=== PATIENT | female | born 1935 | race Caucasian/White ===

== ENCOUNTER 2016-04-30 12:46 | Inpatient (IN) | payer OTHER ==
[~2016-04-30] VITALS: Ht 162.6 cm; Wt 149.0 kg
[~2016-04-30 12:46] MED LIST: ADVAIR 250/501 DISK IH; ALBUTEROL17 G1 IH; ALDACTONE25 MG PO; ALLOPURINOL300 MG PO; ARTHROTEC 751 TABLET PO; BENEMID500 MG PO; CALAN SR,COVER240 MG PO; CAPOTEN50 MG PO; CAPTOPRIL50 MG; CAPTOPRIL50 MG PO; CEFDINIR300 MG PO; CEFTIN500 MG PO; CIPROFLOXACIN500 M1 PO; COLACE100 MG PO; COMBIVENT INH14.7 GM IH; COMBIVENT RESPIM4 GM IH; COMBIVENT200 INHALA IH; COUMADIN PO; COUMADIN1 MG PO; COUMADIN4 MG PO; CYCLOBENZAPRINE10 MG PO; CYMBALTA60 MG PO; Combivent IH; Coumadin dosing per PO; DERMAWERX SDS1 EACH TP; DILAUDID2 MG PO; DOXYCYCLINE HY100 MG PO; DULOXETINE HCL60 MG PO; DUONEB 2.5-0.5 M3 ML AEROSOL; DUONEB 2.5-0.5 M3 ML IH; ECOTRIN325 MG PO; ENDOCET 5-3251 EAC1 PO; ENDOCET 5-3251 EACH PO; ENDOCET 7.5-321 EACH PO; ERGOCALCIF50000 UNIT PO; FEOSOL325 MG PO; FLECTOR 1.3%1 PATC1 TD; FLEXERIL10 MG PO; FLEXERIL5 MG PO; FLONASE ALLERG9.9 ML BOTH NARES; FLONASE16 G1 BOTH NARES; FLONASE16 G1 NS; FLORASTOR250 MG PO; FLUTICASONE PRO16 GM BOTH NARES; FUROSEMIDE20 MG PO; FUROSEMIDE40 MG PO; GABAPENTIN300 MG PO; GABAPENTIN600 MG PO; HYDROCODON-ACE1 EAC7 PO; HYDROCODON-ACE1 EAC8 PO; IMDUR30 MG PO; IPRATR-ALBUTEROL3 ML IH; IRON325 M1 PO; ISOSORBIDE MONO30 MG PO; KEFLEX500 MG PO; KENALOG,ARISTOC80 GM TP; KENLAOG,ARISTOC60 ML TP; KLOR-CON 88 MEQ PO; LANSOPRAZOLE30 MG PO; LASIX20 MG PO; LASIX40 MG PO; LEVAQUIN500 MG PO; LEVOTHROID,SY0.05 MG PO; LEVOTHROID50 MCG PO; LEVOTHYROXINE50 MCG PO; LEVOTHYROXINE75 MCG PO; LEVOXYL50 MCG PO; LOVENOX150 MG/1 M SC; Lasix PO; MACROBID100 MG PO; METHENAMINE HIPP1 G1 PO; METHENAMINE HIPP1 GM PO; MICRO-K8 ME1 PO; NEURONTIN300 MG PO; NEURONTIN600 MG PO; NORCO 5/3251 TABLET PO; Omnicef PO; PERCOCET 5/31 TABLET PO; PRAVACHOL40 M1 PO; PRAVACHOL40 MG PO; PRAVACHOL80 MG PO; PRAVASTATIN SOD40 MG PO; PREDNISONE10 MG PO; PREDNISONE20 MG PO; PREDNISONE5 MG PO; PREVACID30 MG PO; PROBENECID500 MG PO; RANITIDINE HCL300 MG PO; REFRESH TEARS15 ML BOTH EYES; ROZEREM8 MG PO; SENOKOT S,PE1 TABLET PO; SENOKOT,SENN1 TABLET PO; SKELAXIN800 MG PO; SPIRIVA RESPIMAT4 GM IH; SYNTHROID50 MCG PO; TRAMADOL HCL50 MG PO; TRIAMCINOLONE A15 G2 TP; TRIAMCINOLONE A15 GM TP; TYLENOL/CODE1 TABLET PO; VALACYCLOVIR500 MG PO; VALIUM5 MG PO; VERAPAMIL HCL240 MG PO; VERELAN 240 MG240 MG PO; Vicodin,Lortab 5/500 PO; WARFARIN SODIUM1 MG PO; WARFARIN SODIUM3 MG PO; ZANTAC300 MG PO; ZOCOR20 MG PO; ZYLOPRIM150 MG PO; ZYLOPRIM300 MG PO; ZYRTEC10 M3 PO; predniSONE PO
[2016-04-30 15:23] LABS: HEMATOCRIT 37.4 % (36.0-46.0); MCH 30.8 PG (29.0-34.0); MCHC 32.6 G/DL (30.0-36.0); MCV 94.4 FL (83-99); MEAN PLAT.VOLUME 11.5 uM^3 (9.5-12.4); PLATELET COUNT 137 K/uL (156-360); RBC DIS.WIDTH-CV 16.9 % (11.8-14.6); RBC DIS.WIDTH-SD 55.7 % (39-53); RED BLOOD COUNT 3.96 M/uL (3.80-5.20)
[2016-04-30 15:29] LABS: EOSINOPHIL (%) 1.2 % (0-5); EOSINOPHIL COUNT 0.1 K/uL (0-0.3); IMMATURE GRANULOCYTE (%) 0.4 % (0.0-0.7); IMMATURE GRANULOCYTE COUNT 0.4 K/uL; LYMPHOCYTE COUNT 0.5 K/uL (1.0-2.8); MONOCYTE (%) 5.3 % (3-12); MONOCYTE COUNT 0.5 K/uL (0-0.8); NEUTROPHIL (%) 87.9 % (45-76); NEUTROPHIL COUNT 8.3 K/uL (1.8-6.4); WHITE BLOOD COUNT 9.5 K/uL (4.1-10.2)
[2016-04-30 15:34] LABS: CHLORIDE 100 mEq/L (99-109); POTASSIUM 4.3 mEq/L (3.7-5.4)
[2016-04-30 15:35] LABS: SODIUM 140 mEq/L (136-147)
[2016-04-30 15:36] LABS: GLUCOSE 104 mg/dL (70-99)
[2016-04-30 15:38] LABS: ANION GAP 14 MEQ/L (2-14)
[2016-04-30 15:40] LABS: GFR ESTIMATE (CALCULATED) 38 mL/min/
[2016-04-30 15:41] LABS: UREA NITROGEN (BUN) 27 mg/dL (9-23)
[2016-04-30 17:25] LABS: ADD MIUA? YES; BILIRUBIN NEGATIVE; BLOOD NEGATIVE; COLOR YELLOW ((YELLOW)); GLUCOSE (STRIP) NEGATIVE; KETONES NEGATIVE; LEUKOCYTES MODERATE; NITRITE NEGATIVE; PROTEIN (STRIP) NEGATIVE; SPECIFIC GRAVITY 1.015 (1.000-1.030)
[2016-04-30] MEDS ORDERED: IRON325 MG PO (17:56)
[2016-04-30] MEDS ORDERED: COUMADIN2 MG PO ×2 (18:00)
[2016-04-30] MEDS ORDERED: VIBRAMYCIN100 MG PO (18:02)
[2016-04-30 18:37] LABS: INTER. NORMALIZED RATIO 1.8; PROTHROMBIN TIME 18.4 (9.2-11.2); PTT 46.4 (25-32)
[2016-04-30 18:42] LABS: TROP-I INTERPRETATION NEGATIVE; TROPONIN-I < 0.01 ng/mL (0.0-0.30)
[2016-04-30 18:47] LABS: BACTERIA 4+; EPITHELIAL CELLS NONE SEEN; MUCUS NONE SEEN; RED BLOOD CELLS 0-5 /HPF (0-5); UCUL ADDED? YES; WHITE BLOOD CELLS 40-50 /HPF (0-5)
[2016-04-30 18:48] LABS: CASTS NONE SEEN /LPF; CRYSTALS NONE SEEN
[2016-04-30 20:26] VITALS: BP 104/52
[2016-05-01 00:32] VITALS: BP 123/58
[2016-05-01 03:10] VITALS: BP 144/68
[2016-05-01 07:50] LABS: HEMATOCRIT 33.5 % (36.0-46.0); INTER. NORMALIZED RATIO 1.6; MCH 30.4 PG (29.0-34.0); MCHC 31.9 G/DL (30.0-36.0); MCV 95.2 FL (83-99); MEAN PLAT.VOLUME 11.4 uM^3 (9.5-12.4); PLATELET COUNT 112 K/uL (156-360); PROTHROMBIN TIME 16.7 (9.2-11.2); RBC DIS.WIDTH-SD 59.4 % (39-53); RED BLOOD COUNT 3.52 M/uL (3.80-5.20); WHITE BLOOD COUNT 5.5 K/uL (4.1-10.2)
[2016-05-01 08:08] LABS: ANION GAP 7 MEQ/L (2-14); CHLORIDE 103 MEQ/L (99-109); GFR ESTIMATE (CALCULATED) 46 mL/min/; GLUCOSE 88 mg/dL (70-99); POTASSIUM 3.8 MEQ/L (3.7-5.4); SAMPLE HEMOLYSIS CHECK 0; SAMPLE ICTERIC CHECK 0; SAMPLE LIPEMIA CHECK 0; SODIUM 138 MEQ/L (136-147); UREA NITROGEN (BUN) 21 mg/dL (9-23)
[2016-05-01 08:36] VITALS: BP 125/65
[2016-05-01 11:54] VITALS: BP 126/65
[2016-05-01 17:10] VITALS: BP 125/68
[2016-05-01 19:00] LABS: INFLUENZA A VIRAL ANTIGEN NEGATIVE; INFLUENZA B VIRAL ANTIGEN NEGATIVE
[2016-05-01 19:45] VITALS: BP 107/64
[2016-05-02] VITALS (8 sets, daily range): BP systolic 129–194; BP diastolic 62–107
[2016-05-02 08:08] LABS: ANION GAP 14 MEQ/L (2-14); CHLORIDE 104 MEQ/L (99-109); POTASSIUM 4.1 MEQ/L (3.7-5.4); SAMPLE HEMOLYSIS CHECK 0; SAMPLE ICTERIC CHECK 0; SAMPLE LIPEMIA CHECK 0; SODIUM 138 MEQ/L (136-147)
[2016-05-02 08:17] LABS: GFR ESTIMATE (CALCULATED) 51 mL/min/; UREA NITROGEN (BUN) 17 mg/dL (9-23)
[2016-05-02 08:19] LABS: GLUCOSE 147 mg/dL (70-99)
[2016-05-02 10:14] LABS: INTER. NORMALIZED RATIO 1.5; PROTHROMBIN TIME 15.3 (9.2-11.2)
[2016-05-02 10:21] LABS: EOSINOPHIL (%) 0 % (0-5); HEMATOCRIT 39.8 % (36.0-46.0); IMMATURE GRANULOCYTE (%) 0.9 % (0.0-0.7); LYMPHOCYTE COUNT 0.6 K/uL (1.0-2.8); MCH 29.7 PG (29.0-34.0); MCHC 31.9 G/DL (30.0-36.0); MEAN PLAT.VOLUME 11.5 uM^3 (9.5-12.4); MONOCYTE COUNT 0.1 K/uL (0-0.8); NEUTROPHIL (%) 83.4 % (45-76); NEUTROPHIL COUNT 3.7 K/uL (1.8-6.4); PLATELET COUNT 135 K/uL (156-360); RBC DIS.WIDTH-CV 16.7 % (11.8-14.6); RBC DIS.WIDTH-SD 57.3 % (39-53); RED BLOOD COUNT 4.28 M/uL (3.80-5.20); WHITE BLOOD COUNT 4.4 K/uL (4.1-10.2)
[2016-05-03 04:00] VITALS: BP 164/89
[2016-05-03 07:10] VITALS: BP 145/70
[2016-05-03 08:17] LABS: INTER. NORMALIZED RATIO 1.7; PROTHROMBIN TIME 17.9 (9.2-11.2)
[2016-05-03 10:50] VITALS: BP 124/63
[2016-05-03 15:25] VITALS: BP 121/62
[2016-05-03 20:17] VITALS: BP 132/74
[2016-05-04] VITALS (7 sets, daily range): BP systolic 127–167; BP diastolic 60–89
[2016-05-04 09:02] LABS: INTER. NORMALIZED RATIO 2.3; PROTHROMBIN TIME 24.2 (9.2-11.2)
[2016-05-05 03:55] VITALS: BP 153/68
[2016-05-05 06:43] VITALS: BP 167/93
[2016-05-05 07:37] LABS: INTER. NORMALIZED RATIO 2.9; PROTHROMBIN TIME 30.1 (9.2-11.2)
[2016-05-05 07:43] LABS: ANION GAP 12 MEQ/L (2-14); CHLORIDE 103 MEQ/L (99-109); GFR ESTIMATE (CALCULATED) 38 mL/min/; GLUCOSE 136 mg/dL (70-99); POTASSIUM 3.9 MEQ/L (3.7-5.4); SAMPLE HEMOLYSIS CHECK 0; SAMPLE ICTERIC CHECK 0; SAMPLE LIPEMIA CHECK 0; SODIUM 139 MEQ/L (136-147); THEOPHYLLINE 9.1 MCG/ML (10-20)
[2016-05-05 07:44] LABS: UREA NITROGEN (BUN) 40 mg/dL (9-23)
[2016-05-05 08:00] LABS: BASOPHIL COUNT 0.1 K/uL (0-0.1); EOSINOPHIL (%) 0 % (0-5); HEMATOCRIT 39.3 % (36.0-46.0); IMMATURE GRANULOCYTE (%) 1.1 % (0.0-0.7); IMMATURE GRANULOCYTE COUNT 0.1 K/uL; MCH 29.9 PG (29.0-34.0); MCHC 32.1 G/DL (30.0-36.0); MCV 93.1 FL (83-99); MEAN PLAT.VOLUME 11.1 uM^3 (9.5-12.4); MONOCYTE (%) 7.4 % (3-12); MONOCYTE COUNT 0.6 K/uL (0-0.8); NEUTROPHIL (%) 78.5 % (45-76); NEUTROPHIL COUNT 6.4 K/uL (1.8-6.4); PLATELET COUNT 154 K/uL (156-360); RBC DIS.WIDTH-CV 16.8 % (11.8-14.6); RBC DIS.WIDTH-SD 57.2 % (39-53); RED BLOOD COUNT 4.22 M/uL (3.80-5.20)
[2016-05-05 08:03] LABS: WHITE BLOOD COUNT 8.2 K/uL (4.1-10.2)
[2016-05-05 08:18] LABS: HEMATOLOGY COMMENT 1 SMEAR COMPATIBLE; USER ID SDF
[2016-05-05 15:53] VITALS: BP 145/93
[2016-05-05 19:15] VITALS: BP 165/97
[2016-05-05 22:57] VITALS: BP 174/88
[2016-05-06 03:10] VITALS: BP 176/81
[2016-05-06 07:36] LABS: MEAN PLAT.VOLUME 12.6 uM^3 (9.5-12.4); PLATELET COUNT 167 K/uL (156-360)
[2016-05-06 07:45] LABS: INTER. NORMALIZED RATIO 2.8; PROTHROMBIN TIME 29.7 (9.2-11.2)
[2016-05-06 08:08] LABS: ALKALINE PHOSPHATASE 67 IU/L (3-129); ANION GAP 8 MEQ/L (2-14); CHLORIDE 104 MEQ/L (99-109); GFR ESTIMATE (CALCULATED) 38 mL/min/; GLUCOSE 136 mg/dL (70-99); POTASSIUM 3.9 MEQ/L (3.7-5.4); SAMPLE HEMOLYSIS CHECK 0; SAMPLE ICTERIC CHECK 0; SAMPLE LIPEMIA CHECK 0; SODIUM 139 MEQ/L (136-147); TOTAL BILIRUBIN 0.5 MG/DL (0.0-1.0); UREA NITROGEN (BUN) 46 mg/dL (9-23)
[2016-05-06 08:18] LABS: DELETE MACHINE DIFF? YES
[2016-05-06 08:34] VITALS: BP 145/85
[2016-05-06 09:20] LABS: ABS NEUTROPHIL COUNT 5.61; ANISOCYTOSIS OCC; PLAT.SUFFICIENCY ADEQUATE; POLYCHROMASIA OCC; USER ID CL
[2016-05-06 12:00] VITALS: BP 180/90
[2016-05-06 13:43] LABS: HEMATOCRIT 36.3 % (36.0-46.0); MCH 30.6 PG (29.0-34.0); MCHC 33.3 G/DL (30.0-36.0); MCV 91.9 FL (83-99); RBC DIS.WIDTH-CV 16.6 % (11.8-14.6); RBC DIS.WIDTH-SD 55.4 % (39-53); RED BLOOD COUNT 3.95 M/uL (3.80-5.20); WHITE BLOOD COUNT 7.4 K/uL (4.1-10.2)
[2016-05-06 16:00] VITALS: BP 116/66
[2016-05-06 19:40] VITALS: BP 138/90
[2016-05-06 23:01] VITALS: BP 136/87
[2016-05-07 04:15] VITALS: BP 136/87
[2016-05-07 06:51] LABS: HEMATOCRIT 38.4 % (36.0-46.0); MCH 30.5 PG (29.0-34.0); MCHC 32.8 G/DL (30.0-36.0); MEAN PLAT.VOLUME 11.9 uM^3 (9.5-12.4); PLATELET COUNT 163 K/uL (156-360); RBC DIS.WIDTH-CV 16.7 % (11.8-14.6); RBC DIS.WIDTH-SD 56.7 % (39-53); RED BLOOD COUNT 4.13 M/uL (3.80-5.20); WHITE BLOOD COUNT 8.6 K/uL (4.1-10.2)
[2016-05-07 07:01] LABS: EOSINOPHIL (%) 0 % (0-5); IMMATURE GRANULOCYTE (%) 1.4 % (0.0-0.7); IMMATURE GRANULOCYTE COUNT 0.1 K/uL; LYMPHOCYTE COUNT 1.5 K/uL (1.0-2.8); MONOCYTE (%) 5.7 % (3-12); MONOCYTE COUNT 0.5 K/uL (0-0.8); NEUTROPHIL (%) 74.9 % (45-76); NEUTROPHIL COUNT 6.5 K/uL (1.8-6.4)
[2016-05-07 07:16] LABS: PROTHROMBIN TIME 32.1 (9.2-11.2)
[2016-05-07 07:33] LABS: ANION GAP 9 MEQ/L (2-14); CHLORIDE 105 MEQ/L (99-109); SAMPLE HEMOLYSIS CHECK 0; SAMPLE ICTERIC CHECK 0; SAMPLE LIPEMIA CHECK 0; SODIUM 142 MEQ/L (136-147); TOTAL BILIRUBIN 0.5 MG/DL (0.0-1.0)
[2016-05-07 07:44] LABS: ALKALINE PHOSPHATASE 67 IU/L (3-129); GFR ESTIMATE (CALCULATED) 38 mL/min/; UREA NITROGEN (BUN) 46 mg/dL (9-23)
[2016-05-07 07:45] LABS: GLUCOSE 97 mg/dL (70-99)
[2016-05-07 08:12] VITALS: BP 141/93
[2016-05-07 09:46] LABS: HEMATOLOGY COMMENT 1 SMEAR COMPATIBLE; USER ID CL
[2016-05-07 12:26] VITALS: BP 108/65
[2016-05-07 17:14] VITALS: BP 149/80
[2016-05-07 19:51] VITALS: BP 160/97
[2016-05-07 23:28] VITALS: BP 145/82
[2016-05-08 03:55] VITALS: BP 158/82
[2016-05-08 08:56] VITALS: BP 131/55
[2016-05-08 09:13] LABS: INTER. NORMALIZED RATIO 2.8; PROTHROMBIN TIME 29.3 (9.2-11.2)
[2016-05-08] MEDS ORDERED: LOPRESSOR25 MG PO (10:53)
[2016-05-08] MEDS ORDERED: VERAPAMIL HCL360 MG PO (10:53)
[2016-05-08] MEDS ORDERED: MONTELUKAST SOD10 MG PO (10:54)
[2016-05-08] MEDS ORDERED: MYCOSTATIN 100,60 ML PO (10:55)
[2016-05-08] MEDS ORDERED: PREDNISONE10 MG PO (10:55)
[2016-05-08] MEDS ORDERED: MUCINEX600 MG PO (10:55)
[2016-05-08] MEDS ORDERED: CEFTIN500 MG PO (11:03)
[2016-05-08 11:15] LABS: HEMATOCRIT 40.2 % (36.0-46.0); MCH 30.8 PG (29.0-34.0); MCHC 32.8 G/DL (30.0-36.0); MCV 93.7 FL (83-99); MEAN PLAT.VOLUME 12.2 uM^3 (9.5-12.4); PLATELET COUNT 176 K/uL (156-360); RBC DIS.WIDTH-CV 17.2 % (11.8-14.6); RBC DIS.WIDTH-SD 57.7 % (39-53); RED BLOOD COUNT 4.29 M/uL (3.80-5.20)
[2016-05-08 11:27] VITALS: BP 130/56
[2016-05-08 11:27] LABS: ANION GAP 4 MEQ/L (2-14); CHLORIDE 104 MEQ/L (99-109); GFR ESTIMATE (CALCULATED) 42 mL/min/; GLUCOSE 89 mg/dL (70-99); POTASSIUM 3.6 MEQ/L (3.7-5.4); SAMPLE HEMOLYSIS CHECK 0; SAMPLE ICTERIC CHECK 0; SAMPLE LIPEMIA CHECK 0; SODIUM 139 MEQ/L (136-147); UREA NITROGEN (BUN) 40 mg/dL (9-23)
== END 2016-05-08 13:14 | disposition home or self-care (01) | DRG 871 ==
LOC: EME 12:46 → EDOF 17:45 → 2EAST 17:45
PROVIDERS: Emergency Medicine; Hospitalist; Internal Medicine
DX: A41.9 Sepsis, unspecified organism (principal); J18.9 Pneumonia, unspecified organism; N39.0 Urinary tract infection, site not specified; Z68.43 Body mass index [BMI] 50.0-59.9, adult; J44.1 Chronic obstructive pulmonary disease with (acute) exacerbation; J96.11 Chronic respiratory failure with hypoxia; B37.0 Candidal stomatitis; I42.9 Cardiomyopathy, unspecified; N18.3 Chronic kidney disease, stage 3 (moderate); E66.01 Morbid (severe) obesity due to excess calories; D53.9 Nutritional anemia, unspecified; D69.6 Thrombocytopenia, unspecified; E03.9 Hypothyroidism, unspecified; I27.2 Other secondary pulmonary hypertension; R53.1 Weakness; F41.9 Anxiety disorder, unspecified; I12.9 Hypertensive chronic kidney disease with stage 1 through stage 4 chronic kidney disease, or unspecified chronic kidney disease; B96.20 Unspecified Escherichia coli [E. coli] as the cause of diseases classified elsewhere; F32.9 Major depressive disorder, single episode, unspecified; G89.29 Other chronic pain; E11.22 Type 2 diabetes mellitus with diabetic chronic kidney disease; M10.9 Gout, unspecified; G47.30 Sleep apnea, unspecified; I27.81 Cor pulmonale (chronic); Z91.013 Allergy to seafood; Z88.8 Allergy status to other drugs, medicaments and biological substances; Z99.81 Dependence on supplemental oxygen; Z86.718 Personal history of other venous thrombosis and embolism; Z87.440 Personal history of urinary (tract) infections; Z87.891 Personal history of nicotine dependence
CPT/HCPCS: 70450; 71010; 71250; 72131; 73560; 74176; 80048; 80053; 80198; 81003; 83605; 84484; 85025; 85027; 85610; 85730; 87040; 87070; 87077; 87086; 87106; 87186; 87205; 87502; 93005; 93306; 94640; 94640 76; 94668; 94760; 94799; 99202; 99281; 99284; J0456; J0692; J0696; J2920; J2930; J7050; J7512; J7644

== ENCOUNTER 2016-05-27 14:39 | Inpatient (IN) | payer OTHER ==
[~2016-05-27] VITALS: Ht 160 cm; Wt 148.6 kg
[~2016-05-27 14:39] MED LIST changes: +COUMADIN2 MG PO; +IRON325 MG PO; +LOPRESSOR25 MG PO; +MONTELUKAST SOD10 MG PO; +MUCINEX600 MG PO; +MYCOSTATIN 100,60 ML PO; +VERAPAMIL HCL360 MG PO; +VIBRAMYCIN100 MG PO
[2016-05-27 16:39] LABS: CHLORIDE 101 mEq/L (99-109); POTASSIUM 4.1 mEq/L (3.7-5.4); SODIUM 143 mEq/L (136-147)
[2016-05-27 16:41] LABS: GLUCOSE 94 mg/dL (70-99)
[2016-05-27 16:42] LABS: ANION GAP 16 MEQ/L (2-14)
[2016-05-27 16:44] LABS: GFR ESTIMATE (CALCULATED) 33 mL/min/
[2016-05-27 16:45] LABS: UREA NITROGEN (BUN) 30 mg/dL (9-23)
[2016-05-27 16:53] LABS: HEMATOCRIT 42.7 % (36.0-46.0); MCH 31.5 PG (29.0-34.0); MCHC 32.8 G/DL (30.0-36.0); RBC DIS.WIDTH-CV 16.4 % (11.8-14.6); RED BLOOD COUNT 4.45 M/uL (3.80-5.20)
[2016-05-27 16:55] LABS: WHITE BLOOD COUNT 5.3 K/uL (4.1-10.2)
[2016-05-27 17:30] LABS: PTT 51.3 (25-32)
[2016-05-27 17:41] LABS: PROTHROMBIN TIME 49.4 (9.2-11.2)
[2016-05-27 17:41] LABS: ADD MIUA? YES; BILIRUBIN NEGATIVE; BLOOD NEGATIVE; COLOR YELLOW ((YELLOW)); GLUCOSE (STRIP) NEGATIVE; KETONES NEGATIVE; LEUKOCYTES TRACE; NITRITE NEGATIVE; PROTEIN (STRIP) NEGATIVE; SPECIFIC GRAVITY 1.019 (1.000-1.030); UROBILINOGEN 0.2 MG/DL (0.2-1.0)
[2016-05-27 17:42] LABS: INTER. NORMALIZED RATIO 4.6
[2016-05-27 17:42] LABS: BACTERIA NONE SEEN /HPF; EPITHELIAL CELLS RARE /HPF; MUCUS TRACE /LPF; RED BLOOD CELLS 0-5 /HPF (0-5); UCUL ADDED? NO; UNCLASSIFIED CRYSTALS 1+ /HPF; WHITE BLOOD CELLS 20-30 /HPF (0-5)
[2016-05-27 17:43] LABS: CASTS NONE SEEN /LPF; CRYSTALS NONE SEEN
[2016-05-27 18:55] LABS: MEAN PLAT.VOLUME 11.7 uM^3 (9.5-12.4)
[2016-05-27 19:07] LABS: PLATELET COUNT 113 K/uL (156-360)
[2016-05-27] MEDS ORDERED: ADVAIR 250/501 DISK IH (19:22)
[2016-05-27] MEDS ORDERED: DOXYCYCLINE HY100 MG PO (19:25)
[2016-05-27] MEDS ORDERED: HYDROXYZINE HCL25 MG PO (19:28)
[2016-05-27] MEDS ORDERED: METAXALONE800 MG PO (20:54)
[2016-05-27] MEDS ORDERED: PROBENECID500 MG PO (20:58)
[2016-05-27] MEDS ORDERED: WARFARIN SODIUM1 MG PO (21:04)
[2016-05-27] MEDS ORDERED: COUMADIN3 MG PO (21:05)
[2016-05-27 23:15] LABS: INFLUENZA A VIRAL ANTIGEN NEGATIVE; INFLUENZA B VIRAL ANTIGEN NEGATIVE
[2016-05-28] VITALS: BP 134/63
[2016-05-28 04:47] VITALS: BP 119/62
[2016-05-28 05:51] LABS: MCH 30.3 PG (29.0-34.0); MCHC 31.8 G/DL (30.0-36.0); MCV 95.4 FL (83-99); MEAN PLAT.VOLUME 11.2 uM^3 (9.5-12.4); PLATELET COUNT 117 K/uL (156-360); RBC DIS.WIDTH-CV 16.7 % (11.8-14.6); RBC DIS.WIDTH-SD 58.3 % (39-53); RED BLOOD COUNT 4.09 M/uL (3.80-5.20)
[2016-05-28 06:00] LABS: EOSINOPHIL (%) 1.7 % (0-5); EOSINOPHIL COUNT 0.1 K/uL (0-0.3); IMMATURE GRANULOCYTE (%) 0.5 % (0.0-0.7); LYMPHOCYTE COUNT 0.8 K/uL (1.0-2.8); MONOCYTE (%) 2.5 % (3-12); MONOCYTE COUNT 0.1 K/uL (0-0.8); NEUTROPHIL (%) 76.1 % (45-76); NEUTROPHIL COUNT 3.1 K/uL (1.8-6.4)
[2016-05-28 06:10] LABS: INTER. NORMALIZED RATIO 4.3; PROTHROMBIN TIME 45.5 (9.2-11.2)
[2016-05-28 06:20] LABS: ALKALINE PHOSPHATASE 73 IU/L (3-129); ANION GAP 8 MEQ/L (2-14); CHLORIDE 102 MEQ/L (99-109); GFR ESTIMATE (CALCULATED) 38 mL/min/; POTASSIUM 4.2 MEQ/L (3.7-5.4); SAMPLE HEMOLYSIS CHECK 0; SAMPLE ICTERIC CHECK 0; SAMPLE LIPEMIA CHECK 0; SODIUM 140 MEQ/L (136-147); TOTAL BILIRUBIN 0.7 MG/DL (0.0-1.0); UREA NITROGEN (BUN) 26 mg/dL (9-23)
[2016-05-28 06:21] LABS: GLUCOSE 120 mg/dL (70-99)
[2016-05-28 07:34] VITALS: BP 140/63
[2016-05-28 07:44] LABS: INTERNAL CONTROL VALID? YES
[2016-05-28 11:39] VITALS: BP 121/58
[2016-05-28 16:27] VITALS: BP 136/77
[2016-05-28 19:26] VITALS: BP 153/83
[2016-05-29 01:21] VITALS: BP 137/73
[2016-05-29 06:19] LABS: PROTHROMBIN TIME 31.7 (9.2-11.2)
[2016-05-29 08:00] VITALS: BP 124/66
[2016-05-29 08:48] LABS: ALKALINE PHOSPHATASE 70 IU/L (3-129); ANION GAP 11 MEQ/L (2-14); CHLORIDE 105 MEQ/L (99-109); GFR ESTIMATE (CALCULATED) 35 mL/min/; GLUCOSE 162 mg/dL (70-99); POTASSIUM 4.1 MEQ/L (3.7-5.4); SAMPLE HEMOLYSIS CHECK 0; SAMPLE ICTERIC CHECK 0; SAMPLE LIPEMIA CHECK 0; SODIUM 142 MEQ/L (136-147); TOTAL BILIRUBIN 0.4 MG/DL (0.0-1.0); UREA NITROGEN (BUN) 33 mg/dL (9-23)
[2016-05-29 09:04] LABS: MCH 30.4 PG (29.0-34.0); MCHC 32.2 G/DL (30.0-36.0); MCV 94.4 FL (83-99); MEAN PLAT.VOLUME 11.7 uM^3 (9.5-12.4); PLATELET COUNT 123 K/uL (156-360); RBC DIS.WIDTH-CV 16.8 % (11.8-14.6); RBC DIS.WIDTH-SD 57.7 % (39-53); RED BLOOD COUNT 3.92 M/uL (3.80-5.20); WHITE BLOOD COUNT 5.7 K/uL (4.1-10.2)
[2016-05-29 10:25] LABS: VANCOMYCIN, TROUGH 25.8 MCG/ML (10-20)
[2016-05-29 16:11] VITALS: BP 123/58
[2016-05-29 19:59] VITALS: BP 129/66
[2016-05-29 23:16] VITALS: BP 178/82
[2016-05-30 07:30] VITALS: BP 144/63
[2016-05-30 09:19] LABS: INTER. NORMALIZED RATIO 2.5; PROTHROMBIN TIME 25.8 (9.2-11.2)
[2016-05-30 15:21] VITALS: BP 144/69
[2016-05-31] VITALS: BP 133/60
[2016-05-31 06:57] LABS: INTER. NORMALIZED RATIO 3.1; PROTHROMBIN TIME 32.8 (9.2-11.2)
[2016-05-31 08:01] VITALS: BP 153/69
[2016-05-31] MEDS ORDERED: AMOX TR-K CLV1 EAC3 PO (08:52)
[2016-05-31] MEDS ORDERED: PREDNISONE10 MG PO (08:53)
== END 2016-05-31 12:16 | disposition home health service (06) | DRG 190 ==
LOC: EME 14:39 → EDOF 19:33 → 3EAST 19:33
PROVIDERS: Emergency Medicine; Internal Medicine; Nurse Practitioner Adult Health
DX: J44.0 Chronic obstructive pulmonary disease with (acute) lower respiratory infection (principal); J18.9 Pneumonia, unspecified organism; J44.1 Chronic obstructive pulmonary disease with (acute) exacerbation; I48.0 Paroxysmal atrial fibrillation; J96.11 Chronic respiratory failure with hypoxia; Y95 Nosocomial condition; Z99.81 Dependence on supplemental oxygen; R29.1 Meningismus; I12.9 Hypertensive chronic kidney disease with stage 1 through stage 4 chronic kidney disease, or unspecified chronic kidney disease; N18.3 Chronic kidney disease, stage 3 (moderate); E66.01 Morbid (severe) obesity due to excess calories; Z68.43 Body mass index [BMI] 50.0-59.9, adult; I50.31 Acute diastolic (congestive) heart failure; E78.00 Pure hypercholesterolemia, unspecified; G89.29 Other chronic pain; M10.9 Gout, unspecified; E03.9 Hypothyroidism, unspecified; I27.2 Other secondary pulmonary hypertension; E78.5 Hyperlipidemia, unspecified; J45.909 Unspecified asthma, uncomplicated; K21.9 Gastro-esophageal reflux disease without esophagitis; R51 Headache; G47.33 Obstructive sleep apnea (adult) (pediatric); Z66 Do not resuscitate; Z86.711 Personal history of pulmonary embolism; Z86.718 Personal history of other venous thrombosis and embolism; Z79.01 Long term (current) use of anticoagulants; Z91.19 Patient's noncompliance with other medical treatment and regimen; Z96.653 Presence of artificial knee joint, bilateral; Z96.641 Presence of right artificial hip joint
CPT/HCPCS: 70450; 71010; 71020; 80048; 80053; 80202; 81003; 85025; 85027; 85610; 85730; 87070; 87205; 87449; 87502; 93005; 94640; 94640 76; 94799; 97530 GO; 97530 GP; 99202; 99281; 99284; J0456; J2543; J2930; J3370; J7030; J7050; J7512

== ENCOUNTER 2016-07-17 10:25 | Emergency (ER) | payer OTHER ==
[~2016-07-17] VITALS: Ht 162.6 cm; Wt 56.7 kg
[~2016-07-17 10:25] MED LIST changes: +AMOX TR-K CLV1 EAC3 PO; +COUMADIN3 MG PO; +HYDROXYZINE HCL25 MG PO; +METAXALONE800 MG PO
[2016-07-17 11:09] LABS: EOSINOPHIL (%) 4.3 % (0-5); EOSINOPHIL COUNT 0.2 K/uL (0-0.3); HEMATOCRIT 36.8 % (36.0-46.0); IMMATURE GRANULOCYTE (%) 0.2 % (0.0-0.7); INSTRUMENT ABS NEUTROPHIL CT 2.6 K/uL; LYMPHOCYTE COUNT 1.3 K/uL (1.0-2.8); MCH 31.2 PG (29.0-34.0); MCHC 31.5 G/DL (30.0-36.0); MCV 98.9 FL (83-99); MEAN PLAT.VOLUME 11.5 uM^3 (9.5-12.4); MONOCYTE (%) 7.3 % (3-12); MONOCYTE COUNT 0.3 K/uL (0-0.8); NEUTROPHIL (%) 59.1 % (45-76); NEUTROPHIL COUNT 2.6 K/uL (1.8-6.4); PLATELET COUNT 127 K/uL (156-360); RBC DIS.WIDTH-CV 15.6 % (11.8-14.6); RBC DIS.WIDTH-SD 56.8 % (39-53); RED BLOOD COUNT 3.72 M/uL (3.80-5.20); WHITE BLOOD COUNT 4.4 K/uL (4.1-10.2)
[2016-07-17 11:17] LABS: INTER. NORMALIZED RATIO 2.8; PROTHROMBIN TIME 29.4 (9.2-11.2)
[2016-07-17 11:19] LABS: CHLORIDE 103 mEq/L (99-109); POTASSIUM 3.7 mEq/L (3.7-5.4); SODIUM 142 mEq/L (136-147)
[2016-07-17 11:22] LABS: ANION GAP 8 MEQ/L (2-14)
[2016-07-17 11:23] LABS: GLUCOSE 101 mg/dL (70-99)
[2016-07-17 11:25] LABS: GFR ESTIMATE (CALCULATED) 46 mL/min/; UREA NITROGEN (BUN) 23 mg/dL (9-23)
[2016-07-17] MEDS ORDERED: TYLENOL WITH C1 EACH PO (13:04)
[2016-07-17 14:20] VITALS: BP 149/83
== END 2016-07-17 14:21 | disposition home or self-care (01) ==
LOC: EME → EDBD 10:25 → EME 10:25
PROVIDERS: Emergency Medicine
DX: S20.211A Contusion of right front wall of thorax, initial encounter (principal); S40.011A Contusion of right shoulder, initial encounter; E78.5 Hyperlipidemia, unspecified; I10 Essential (primary) hypertension; W01.198A Fall on same level from slipping, tripping and stumbling with subsequent striking against other object, initial encounter; E03.9 Hypothyroidism, unspecified; Z96.652 Presence of left artificial knee joint; Z96.651 Presence of right artificial knee joint; Z96.641 Presence of right artificial hip joint; Z96.612 Presence of left artificial shoulder joint
CPT/HCPCS: 71260; 73030; 73502; 74177; 80048; 85025; 85610; 93005; 99281; 99285; J7030